=== PATIENT | female | born 1965 | race Two or more races ===

== ENCOUNTER 2020-12-21 15:29 | Outpatient (CLI) | payer OTHER | END 2020-12-21 15:36 | disposition home or self-care (01) | LOC: RAD 15:29 | PROVIDERS: ATTEND Neurological Surgery | DX: M47.26 Other spondylosis with radiculopathy, lumbar region (principal); M47.27 Other spondylosis with radiculopathy, lumbosacral region; M51.16 Intervertebral disc disorders with radiculopathy, lumbar region; M51.17 Intervertebral disc disorders with radiculopathy, lumbosacral region; R26.2 Difficulty in walking, not elsewhere classified; E66.1 Drug-induced obesity; E11.8 Type 2 diabetes mellitus with unspecified complications; I10 Essential (primary) hypertension; I87.2 Venous insufficiency (chronic) (peripheral) ==